=== PATIENT | female | born 1980 | race Caucasian/White ===

== ENCOUNTER 2016-09-29 14:14 | Inpatient (IN) | payer BC ==
[~2016-09-29] VITALS: Ht 182.9 cm; Wt 101.4 kg
[~2016-09-29 14:14] MED LIST: MOTRIN 600600 MG/TAB PO; NO HOME MEDICATIONS; PERCOCET 325 MG1 TA2 PO; PRENATAL 1 VITA1 TAB PO
[2016-11-28] VITALS (41 sets, daily range): BP systolic 108–140; BP diastolic 59–86; PULSE 59–79; TEMP 97.9–98.3
[2016-11-28] MEDS ORDERED: SYNTHROID 0.0.025 MG PO (07:49)
[2016-11-28 08:23] LABS: BASO % 0.3 % (0.0-2.0); EOS % 0.4 % (0-4.0); GRAN # 7.3 (1.4-6.5); HEMATOCRIT 38.9 % (37.0-47.0); HEMOGLOBIN 13.6 g/dl (12.5-16.0); LYMPH # 1.7 (1.2-3.4); LYMPH % 17.3 % (20.0-51.0); MEAN CELL VOLUME 88 fl (80.0-100.0); MEAN CORPUSCULAR HEMOGLOBIN 31 pg (27.0-31.0); MEAN CORPUSCULAR HGB CONC 35 g/dl (33.0-37.0); MEAN PLATELET VOLUME 11.9 fl (7.4-10.4); MONO # 0.5 (0.1-0.6); MONO % 5.1 % (1.7-9.3); PLATELET COUNT 142 K/mm3 (130-400); RED BLOOD COUNT 4.43 M/mm3 (4.10-5.30); REDCELL DISTRIBUTION WIDTH-CV 12.9 % (11.5-14.5); WHITE BLOOD COUNT 9.6 K/mm3 (4.8-10.8)
[2016-11-29 03:55] VITALS: BP 119/62; PULSE 76; TEMP 98.9
[2016-11-29 08:44] VITALS: BP 129/73; PULSE 79; TEMP 98
[2016-11-29] MEDS ORDERED: MOTRIN 600600 MG/TAB PO (09:41)
[2016-11-29] MEDS ORDERED: PERCOCET 325 MG1 TA2 PO (09:41)
[2016-11-29 16:57] VITALS: BP 125/73; PULSE 78; TEMP 98.4
[2016-11-29 19:40] VITALS: BP 119/69; PULSE 76; TEMP 97.8
[2016-11-30 07:30] VITALS: BP 121/66; PULSE 80; TEMP 98
== END 2016-11-30 11:00 | disposition home or self-care (01) | DRG 775 ==
LOC: EDSTATUS 11-28 06:43 → LDR 11-28 06:44 → OB 11-28 07:16 → LDRO 11-28 14:13 → OB 11-28 18:18
PROVIDERS: Obstetrics & Gynecology
PROC: 10E0XZZ Delivery of Products of Conception, External Approach (ICD-10-PCS; principal; 2016-11-28)
PROC: 0KQM0ZZ Repair Perineum Muscle, Open Approach (ICD-10-PCS; 2016-11-28)
PROC: 3E033VJ Introduction of Other Hormone into Peripheral Vein, Percutaneous Approach (ICD-10-PCS; 2016-11-28)
DX: O48.0 Post-term pregnancy (principal); O99.284 Endocrine, nutritional and metabolic diseases complicating childbirth; E03.9 Hypothyroidism, unspecified; O77.0 Labor and delivery complicated by meconium in amniotic fluid; O70.1 Second degree perineal laceration during delivery; Z3A.40 40 weeks gestation of pregnancy; Z37.0 Single live birth
CPT/HCPCS: J1200; J2590; J7120

== ENCOUNTER → 2018-04-10 | Outpatient (CLI) | payer BC ==
[~2018-04-10] MED LIST changes: +SYNTHROID 0.0.025 MG PO
== END ==
LOC: MC.RAD 08:43
DX: Z12.31 Encounter for screening mammogram for malignant neoplasm of breast (principal)

== ENCOUNTER → 2018-09-18 | Outpatient (CLI) | payer BC | LOC: COL.RAD 08:54 | DX: K82.8 Other specified diseases of gallbladder (principal) ==

== ENCOUNTER → 2018-10-04 | Outpatient (CLI) | payer BC | LOC: COL.RAD 08:05 | DX: K82.8 Other specified diseases of gallbladder (principal); K58.9 Irritable bowel syndrome, unspecified | CPT/HCPCS: A9537 ==

== ENCOUNTER → 2018-11-29 | Outpatient (CLI) | payer BC | LOC: MC.RAD 10:00 | DX: N63.31 Unspecified lump in axillary tail of the right breast (principal); M79.89 Other specified soft tissue disorders; N64.52 Nipple discharge | CPT/HCPCS: G0279 ==